=== PATIENT | female | born 1995 | race Caucasian/White ===

== ENCOUNTER 2021-10-24 18:01 | Outpatient (REF) | payer OTHER, SELFPAY | END 2021-10-24 18:02 | disposition home or self-care (01) | LOC: HO.LNP 18:01 | PROVIDERS: Visit Provider Hospitalist | DX: N39.0 Urinary tract infection, site not specified (principal) | CPT/HCPCS: 87086 ==

== ENCOUNTER → 2021-11-20 15:56 | Outpatient (REF) | payer OTHER, SELFPAY | LOC: HO.SL 15:56 | PROVIDERS: PCP Hospitalist; Visit Provider Hospitalist | DX: G47.19 Other hypersomnia (principal) | CPT/HCPCS: 95806 ==

== ENCOUNTER 2022-03-26 08:44 | Outpatient (REF) | payer OTHER, SELFPAY ==
[2022-03-26 11:32] LABS: Hematocrit 40.5 % (37.0-47.0); Hemoglobin 13.3 g/dl (12.0-16.0); Mean Corpuscular HGB Conc 32.8 g/dl (31.0-35.0); Mean Corpuscular Hemoglobin 28.6 pg (27.0-33.0); Mean Corpuscular Volume 87.1 fL (80.0-98.0); Platelet Count 348 X10*3/uL (160-400); Red Blood Count 4.65 X10*6/uL (4.20-5.50); Red Cell Distribution Width 12.1 % (11.0-16.0); White Blood Count 9.5 X10*3/uL (4.8-10.8)
[2022-03-26 12:05] LABS: Alanine Aminotransferase 14 U/L (0-31); Albumin Level 4.1 g/dL (3.5-5.0); Alkaline Phosphatase 61 U/L (39-117); Anion Gap 12 (12-20); Aspartate Amino Transferase 13 U/L (5-31); Bilirubin Total 0.4 mg/dL (0.0-1.0); Blood Urea Nitrogen 12 mg/dL (9-16); Calcium 8.8 mg/dL (8.4-10.2); Carbon Dioxide 25 mmol/L (22-29); Chloride 103 mmol/L (96-108); Cholesterol 213 mg/dL; Estimated Glomerular Filt Rate > 60; Glucose Fasting 84 mg/dL (60-99); HDL Cholesterol 50 mg/dL; LDL Cholesterol Calculated 130 mg/dl; Potassium 4.1 mmol/L (3.3-5.1); Sodium 136 mmol/L (135-145); Triglycerides 166 mg/dL
[2022-03-26 12:19] LABS: TSH reflex Free T4 1.35 uIU/mL (0.32-4.0)
== END 2022-03-26 08:45 | disposition home or self-care (01) ==
LOC: HO.WFDLDS 08:44
PROVIDERS: Visit Provider Hospitalist
DX: Z00.00 Encounter for general adult medical examination without abnormal findings (principal); N92.0 Excessive and frequent menstruation with regular cycle; R53.83 Other fatigue; G47.19 Other hypersomnia; Z68.30 Body mass index [BMI] 30.0-30.9, adult
CPT/HCPCS: 36415; 80053; 80061; 84443; 85027

== ENCOUNTER 2023-06-24 08:19 | Outpatient (AMB) | payer BC, OTHER, SELFPAY ==
--- NOTE | 2023-06-24 08:20 | A.OFFPC_ITS ---
Vital Signs 06/24/23 08:23 Height 5 ft 5 in Weight 195 lb 8 oz BMI 32.5 BP 108/62 Blood Pressure Location Lt brachial Position Sitting Respiration 14 Pulse 85 Pulse Source Pulse Oximeter Temp 98.2 F Temp Source Oral Pulse Oximetry (%) 99 Oxygen Delivery Method Room Air Intake Visit Reasons: Annual PE Intake Note: Patient is here for her yearly physical. Patient reports she feels overly tired during the daytime. She reports she does snore while laying on her back and she has had a sleep study completed 1-2 years ago which came back normal. Patient states she sleeps well at night due to having trazadone previously prescribed by Pooja Silva DNP. Patient reports this medication helps her to stay asleep at night. Patient states she is still waking up and going through her day exhausted. Patient reports she was recently diagnosed with PCOS and is now taking Metformin 500mg daily. Senior Application Security Consultant Required: No Accompanied by: Self / Same As Patient Allergies No Known Allergies Allergy (Verified 06/24/23 08:45) Medication List - Last Reconciled 06/24/23 by Adelina Allen CNP metformin 500 mg PO DAILY trazodone 50 mg PO TID PRN Tobacco use date assessed: 06/24/23 Dental Screening Dental Screen Date: 06/24/23 Did you have a dental visit in the last 12 months?: Yes Did you have a dental problem in the last 6 months where you did not have access to dental care?: No Was dental information given to patient?: Patient has dentist HPI HPI Comments History of Present Illness Details 28-year-old female presents for complete physical exam. Her former PCP was JACKIE who is no longer with the practice She has medical history significant for for PCOS and fatigue She is on metformin and trazodone which he admits to taking as prescribed Her last office visit with her PCP was July 2022. Her last routine blood work was over a year ago. She reports fatigue during the day for several months. She notes that Trazadone promotes adequate night sleep. She takes Trazadone 50 mg every night and denies taking the medication during the day. She states that she wakes up exhausted every morning. She also reports snoring while lying on her back. She had normal sleep study 1-2 years ago. She states that she started going to the gym 2 weeks ago and has been exercising 4 days weekly. She states she does not notice improvement in her energy. She is followed by [facility] digital media representative. Her last pap smear was 09/2022: normal. She was diagnosed with PCOS in October 2022. She was prescribed metformin which she notes she has not taking in the past 1 month. She states that she is sexually active, in a monogamous relationship, and practices safe sex. REPLACED BY [facility] Medical History (Updated 06/24/23 @ 09:24 by Adelina Allen CNP) History of PCOS Obesity (BMI 35.0-39.9 without comorbidity) Asthma Surgical History [place] teeth extracted Family History (Updated 06/24/23 @ 08:34 by Aletha Vieira CMA) Father Melanoma Maternal Grandfather Heart disease Paternal Grandfather Pancreatic cancer Mother Hypertension Other Substance use disorder Social History Household Members: Significant Other Housing: House Alcohol intake: current Alcohol intake frequency: holidays/special occasions only Patient Tobacco Use Status: Never used Tobacco e-Cigarette/Vaping Use: Never Used Second Hand Smoke Exposure: No service: No Current occupational status: employed Current occupation: Patient works for [employer]. Cognitive needs: No Hearing needs: No Vision needs: No Questionnaire PHQ-9 Over the last 2 weeks, how often have you been bothered by any of the following problems? 1. Little interest or pleasure in doing things: not at all 2. Feeling down, depressed, or hopeless: not at all 3. Trouble falling or staying asleep, or sleeping too much: nearly every day 4. Feeling tired or having little energy: nearly every day 5. Poor appetite or overeating: not at all 6. Feeling bad about yourself - or that you are a failure or have let yourself o r your family down: not at all 7. Trouble concentrating on things, such as reading the newspaper or watching television: more than half the days 8. Moving or speaking so slowly that other people could have noticed. Or the opposite - being so fidgety or restless that you have been moving around a lot more than usual: not at all 9. Thoughts that you would be better off or of hurting yourself in some way: not at all Total score: 8 Depression Screening Interpretation: Positive Depression Screening Done: Yes 19374 - PHQ-9 Billing: Yes Source: Developed by Drs. Sunday Alvarez, Evla Castro, Mitch Ba and colleagues, with an educational romeo from [employer]. Thrive Questionnaire Date Thrive assessed: 06/24/23 I am a: Patient What is your living situation today?: I have a steady place to live Within the past 12 months, did the food you bought not last and you didn't have the money to get more?: Never true Within the past 12 months, did you worry whether your food would run out before you got money to buy more?: Never true Do you have trouble paying for medicines?: No Do you have trouble getting transportation to medical appointments?: No Do you have trouble paying your heating and electricity bill?: No Do you have trouble taking care of your child, family member or friend?: No Do you have trouble with day-to-day activities such as bathing, preparing meals, shopping, managing finances, etc.?: No Are you currently unemployed and looking for a job?: No Are you interested in more education?: No Currently or been in a relationship where the following occur: no concerns reported AUDIT C Alcohol Use Questionnaire (AUDIT-C) 1. How often do you have a drink containing alcohol?: Never 3. How often do you have six or more drinks on one occasion?: Never Total Score: 0 Score Reviewed/Action Taken: Yes JUVENAL-7 AMB Questionnaire JUVENAL-7 Date JUVENAL - 7 assessed: 06/24/23 Feeling nervous, anxious, or on edge: 1 = Several days Not being able to stop or control worryin = Not at all Worrying too much about different things: 0 = Not at all Trouble relaxin = Not at all Being so restless that it is hard to sit still: 0 = Not at all Becoming easily annoyed or irritable: 2 = More than half the days Feeling afraid as if something awful might happen: 0 = Not at all Total JUVENAL-7 score (0-4 normal; 5-9 mild; 10-14 moderate; 15-21 severe): 3 Source: Developed by Drs. Sunday Alvarez, Elva Castro, Mitch Ba and colleagues, with an educational romeo from [employer]. JUVENAL-7 Assessment Billing JUVENAL-7 Assessment Tool: JUVENAL-7 Assessment 00051 Review of Systems Const Details: Denies chills, Reports fatigue, Denies fever(s), Denies headache(s) and Denies weakness HEENT Denies change in vision, Denies dizziness, Denies headache(s), Denies hearing loss, Denies nasal congestion, Denies sinus pain, Denies sinus pressure and Denies sore throat Card Denies chest pain, Denies lightheadedness, Denies dyspnea and Denies other (palpitations) Resp Denies cough, Denies dyspnea and Denies wheezing GI Denies abdominal pain, Denies melena, Denies hematochezia, Denies change in bowel habits, Denies dyspepsia and Denies nausea Denies hematuria and Denies dysuria Musc Denies abnormal gait, Denies myalgias, Denies arthralgias, Denies numbness and Denies tingling Skin/Breast Denies rash, Denies unusual bruising and Denies wounds Neuro Denies abnormal gait, Denies dizziness, Denies headache(s), Denies memory loss, Denies numbness, Denies Sensory deficit (Neuro), Denies tingling and Denies weakness Psych Denies anxiety, Denies depression and Denies memory loss Endo Denies cold intolerance, Reports fatigue, Denies heat intolerance, Denies polydipsia and Denies polyuria Bayron/Lymph Denies easy bleeding and Denies easy bruising Aller/Immun Denies wheezing Physical exam (Primary Care) Vital Signs: Last Vital Signs Temp 98.2 F 06/24/23 08:23 Pulse 85 06/24/23 08:23 Resp 14 06/24/23 08:23 BP 108/62 06/24/23 08:23 Pulse Ox 99 06/24/23 08:23 Oxygen Delivery Method Room Air 06/24/23 08:23 BMI result Body Mass Index 32.5 Tobacco/Smoking Status: Tobacco use Status Tobacco use date assessed 06/24/23 06/24/23 08:39 Patient Tobacco Use Status Never used Tobacco 06/24/23 08:21 e-Cigarette/Vaping Use Never Used 06/24/23 08:21 PHQ-9: PHQ-9 Score PHQ-9: Total score 8 06/24/23 08:43 Depression Screening Interpretation: Positive Thrive Assessment: Date of Thrive Assessment Date Thrive assessed 06/24/23 06/24/23 08:39 Currently or been in a relationship where the following occur: no concerns reported Const Other: General: no acute distress, well developed, alert and awake Nutritional Appearance: well nourished Orientation/consciousness: patient oriented x3 HENMT Head: Yes normocephalic and Yes atraumatic Ears: hearing grossly normal bilaterally and TM's normal bilaterally General nose exam: Normal external nose present and Normal nares present Mouth: Normal oral and palatal mucosa present and moist mucous membranes Teeth and gingiva: dentition normal Throat: Yes oropharynx normal Eyes Pupils: Equal, round and reactive pupils present and Pupil accommodation reflex normal EOM: EOMs intact bilaterally Neck Neck: Yes normal visual inspection, Yes no lymphadenopathy and Yes trachea midline Thyroid: Thyroid normal Carotids: no bruits Lymphatic: no lymphadenopathy noted Chest Chest palpation & inspection: normal inspection of the chest Resp Effort & Inspection: normal respiratory effort Auscultation: clear to auscultation bilaterally Cardio Rate: regular rate Rhythm: regular rhythm Heart sounds: S1 normal heart sound present, S2 normal heart sound present, no gallops, no murmurs and no rubs Bruits: no abdominal aortic bruits and no carotid bruits GI Palpation (GI): No Abdominal aortic bruit present, Soft to palpation, nontender, No hepatosplenomegaly present and No Rebound tenderness present Auscultation: normal bowel sounds General: Yes no CVA tenderness Back/Spine/Pelvis Back: no CVA tenderness Cervical Spine: cervical ROM normal and No Cervical spine tenderness Thoracic/Lumbar Spine: thoraco-lumbar ROM normal, No pain with thoraco-lumbar ROM, No thoracic spinal tenderness and No lumbar spinal tenderness Skin General: warm and dry. Normal skin color. Normal skin turgor Lesions: no lesions Rashes: no rashes Trauma: no lacerations or abrasions Wounds: no wounds Nails: normal Neuro General: patient oriented x3, gait normal and CN's II-XI intact bilaterally Cranial nerves: Yes Equal, round and reactive pupils present Cognition (Neuro): normal cognition Gait exam (Neuro): Normal gait present Motor exam (neuro): 5/5 motor strength present throughout Sensory Exam: No Sensory deficit (Neuro) Deep tendon reflexes (DTR's): Right patellar reflex intensity grade: 2+ and Left patellar reflex intensity grade: 2+ Extrem General: Yes normal to inspection, No edema and No calf tenderness Psych Appearance: grossly normal Affect: normal affect Attitude: cooperative Thought process: Normal thought process present Assessment and Plan Assessment & Plan (1) Normal physical examination, routine: Code(s): Z00.00 - Encounter for general adult medical examination without abnormal findings Plan: No significant physical restrictions or limitations noted Advised to get blood work done before next office visit Follow-up in 1 month for fatigue and labs review. Return sooner with worsening or new symptoms Verbalized understanding and agreed with treatment plan. (2) Fatigue: Code(s): R53.83 - Other fatigue Plan: She reports fatigue during the day for several months. She notes that Trazadone promotes adequate night sleep. She takes Trazadone 50 mg every night and denies taking the medication during the day. She states that she wakes up exhausted every morning. She started exercising 4 days a week without improvement in her energy. She has not taken her metformin for the past 1 month. Symptoms likely due to insulin resistant of PCOS. Anemia, thyroid disease, and vitamin-D deficiency is also possible. Will check CBC, TSH, vitamin-D levels, and make adjustments as needed Continue to take metformin 500 mg daily Healthy diet and routine exercise encouraged Continue follow-up with digital media representative as planned Follow-up in 1 month or return sooner with worsening or new symptoms Verbalized understanding and agreed with treatment plan. (3) Snoring: Code(s): R06.83 - Snoring Plan: She also reports snoring while lying on her back. She had normal sleep study 1-2 years ago. Referred to sleep medicine. (4) Obesity (BMI 30.0-34.9): Code(s): E66.9 - Obesity, unspecified Plan: She weighs 195 lb, BMI is 32.5 Snoring may be related to obesity Healthy diet and routine exercise encouraged Verbalized understanding and agreed with treatment plan. Orders: Orders Comprehensive [place]. Panel Fast Today Z00.00 - Encounter for general adult medical examination without abnormal findings Complete Blood Count Auto Diff Today Z00.00 - Encounter for general adult medical examination without abnormal findings Lipid Panel Today Z00.00 - Encounter for general adult medical examination without abnormal findings UA CC w/rflx Micro + Cult Today Z00.00 - Encounter for general adult medical examination without abnormal findings Vitamin D 25-OH Total Today R53.83 - Other fatigue TSH reflex Free T4 Today Z00.00 - Encounter for general adult medical examination without abnormal findings Referrals Sleep Medicine Referral R06.83 - Snoring Medications: Changed From trazodone 50 mg PO TID PRN 90 tabs 1RF sleep assist/anxiety/overwhemed r/t lack of sleep Z72.820 - Sleep deprivation To trazodone 50 mg PO DAILY PRN 90 tabs 1RF sleep assist/anxiety/overwhemed r/t lack of sleep Z72.820 - Sleep deprivation Coding Level of Care Code Est Pt Level 4 (48420) Est Pt Prev Care 18-39y(73053) Diagnoses Normal physical examination, routine Z00.00 Fatigue R53.83 Snoring R06.83 Obesity (BMI 30.0-34.9) E66.9 Additional Codes JUVENAL-7 Assessment Billing - JUVENAL-7 Assessment Tool: JUVENAL-7 Assessment 75511 ([id number])
[2023-06-24 08:23] VITALS: BP 108/62; PULSE 85; RESP 14; TEMP 36.8; O2SAT 99; BMI 32.5
== END 2023-06-24 10:03 | disposition home or self-care (01) ==
PROVIDERS: PCP Hospitalist; Visit Provider Nurse Practitioner Family
DX: Z00.00 Encounter for general adult medical examination without abnormal findings (principal); R53.83 Other fatigue; R06.83 Snoring; E66.9 Obesity, unspecified; Z87.440 Personal history of urinary (tract) infections
CPT/HCPCS: 99395

== ENCOUNTER 2023-07-02 15:19 | Outpatient (AMB) | payer BC, SELFPAY ==
--- NOTE | 2023-07-02 15:21 | MHC.OFFVIS ---
Intake Vital Signs 07/02/23 15:25 Height 5 ft 5 in Weight 196 lb BMI 32.6 BP 118/66 Blood Pressure Location Lt brachial Position Sitting Intake Visit Reasons: [facility]: Snoring while lying on her back - LVM Intake Note: Pt presents today for ? Sleep Apnea . Pt doesnt sleep well. Pt takes Trazodone 50 mg qhs c some relief . Pt feels tired , has to take naps. Pt states this started about 5 years ago. Allergies No Known Allergies Allergy (Verified 07/02/23 15:28) HPI HPI Comments History of Present Illness Details 28 y/o female patient presents for new in-person visit for sleep consultation. Pt reports non refreshing sleep, and excessive daytime sleepiness. She can fall asleep anytime anywhere. The symptoms has been worsened over the last 5 [address] She can't drive long distance, only drive in the morning for long distance. Her eyes getting really heavy in the afternoon and it is hard to open, and needs to take a nap daily, 30 min to 2hrs. Had a home sleep study done in Nov, 2021 but it was negative for sleep apnea. She gained 16 lb since the last sleep study. Sleep questionnaire: Have you ever been diagnosed with a sleep disorder? No. Have you ever had a sleep study in the past? Yes, home sleep study. Have you ever been treated for a sleep disorder? No. Do you take medications for a sleep disorder? Trazodone 50 mg. Do you snore? Yes. Do you wake up gasping at night? No. Do you have episodes of apneas? No. If yes, are they witnessed? No. Do you have episodes of nocturnal chest pain or dyspnea? No. Do you have difficulty initiating sleep? Yes. Do you have difficulty maintaining sleep? Yes. Do you wake up tired? Yes. Do you have headaches upon awakening? Yes, sometimes. Do you wake up with dry mouth or throat? Not often. Do you have GERD? No. Do you have nocturia? No. Do you have nocturnal leg cramps? Occasionally. Do you have symptoms of restless legs? No. Do you act out your dreams? No. Sleep hygiene questionnaire: What is your usual sleep routine? Usual bedtime is at 8-9 pm; Usual wake up time is at 6-6:30 am. Do you take naps? Yes, 30 min to 2 hrs. Is your sleep environment cool, dark, and quiet? Yes. Do you exercise? Yes, for an hour 4 times a week. Do you take caffeine or other stimulants? Coffee and Red Bulls. Do you use electronics in bed? Yes. What is your work schedule? 8 am-4 pm. Hypersomnolence questionnaire: Do you have daytime tiredness or fatigue? Yes. Do you easily fall asleep when inactive? Yes. Have you ever had episodes of sudden weakness? No. Have you ever had episodes of sudden weakness associated with strong emotions? No. [facility] Medical History History of PCOS Obesity (BMI 35.0-39.9 without comorbidity) Asthma Surgical History [place] teeth extracted Family History Father Melanoma Maternal Grandfather Heart disease Paternal Grandfather Pancreatic cancer Mother Hypertension Other Substance use disorder Social History (Updated 07/02/23 @ 15:29 by Janis Rosa) Household Members: Significant Other Housing: House Alcohol intake: current Alcohol intake frequency: holidays/special occasions only Patient Tobacco Use Status: Never used Tobacco e-Cigarette/Vaping Use: Never Used Second Hand Smoke Exposure: No service: No Current occupational status: employed Current occupation: Patient works for [employer]. Cognitive needs: No Hearing needs: No Vision needs: No Questionnaire [place] Sleepiness Scale Questions Sitting and reading: high chance of dozing Watching TV: moderate chance of dozing Sitting inactive in a theater, movie etc.: high chance of dozing As a passenger in a car for an hour without break: high chance of dozing Lying down in the afternoon when circumstances permit: high chance of dozing Sitting and talking to someone: moderate chance of dozing Sitting quietly after lunch without alcohol: moderate chance of dozing In a car, while stopped for a few minutes in the traffic: would never doze ESS < 10: normal, ESS > 12: pathologic: 18 Review of Systems Const All systems reviewed & are unremarkable except as noted in HPI and below ENT Reports Normal hearing present Neuro Reports Normal hearing present Physical Exam Vital Signs: Last Vital Signs BP 118/66 07/02/23 15:25 BMI result Body Mass Index 32.6 Const General: cooperative and tired appearing Nutritional Appearance: obese Orientation/consciousness: patient oriented x3 Neck Neck: Yes full ROM and Yes supple Resp Effort & Inspection: normal respiratory effort and able to speak in complete sentences Neuro General: patient oriented x3 and gait normal Cranial nerves: Yes Bilaterally intact EOM present, Yes Normal facial strength present, Yes Midline tongue present, Yes Symmetric palate elevation present, Yes Normal hearing present, Yes Ability to bilaterally rotate head present and Yes Ability to bilaterally elevate shoulders present Cognition (Neuro): normal cognition Gait exam (Neuro): Normal gait present Motor exam (neuro): 5/5 motor strength present throughout, Pronator motor function not present and no tremor noted Psych Appearance: grossly normal Mental Status: mental status grossly normal Speech and movement: Normal speech and movement present Affect: normal affect Attitude: cooperative Assessment & Plan Assessment & Plan (1) Obesity (BMI 30.0-34.9): Code(s): E66.9 - Obesity, unspecified (2) Snoring: Code(s): R06.83 - Snoring (3) Fatigue: Code(s): R53.83 - Other fatigue (4) Excessive daytime sleepiness: Code(s): G47.19 - Other hypersomnia Plan Pt is advised to undergo in lab sleep study to assess for sleep apnea. The home sleep study was inconclusive. Will f/u with pt after study to discuss results and appropriate treatment options. Wt reduction advised. Pt to call with any worsening concerns or questions. Orders: Orders RT PSG in-lab sleep study 07/02/23 E66.9 - Obesity, unspecified, G47.19 - Other hypersomnia, R06.83 - Snoring, R53.83 - Other fatigue, Z87.42 - Personal history of other diseases of the female genital tract Coding Level of Care Code New Pt Level 3 (76643) Diagnoses Obesity (BMI 30.0-34.9) E66.9 Snoring R06.83 Fatigue R53.83 Excessive daytime sleepiness G47.19
[2023-07-02 15:25] VITALS: BP 118/66; BMI 32.6
== END 2023-07-02 15:54 | disposition home or self-care (01) ==
PROVIDERS: PCP Hospitalist; Visit Provider Nurse Practitioner Family
DX: E66.9 Obesity, unspecified (principal); R06.83 Snoring; R53.83 Other fatigue; G47.19 Other hypersomnia
CPT/HCPCS: 99203

== ENCOUNTER → 2023-07-02 15:19 | Outpatient (BNVA) | payer OTHER, SELFPAY | PROVIDERS: PCP Hospitalist; Visit Provider Nurse Practitioner Family ==

== ENCOUNTER 2023-07-16 07:08 | Outpatient (REF) | payer BC, SELFPAY ==
[2023-07-16 11:13] LABS: MANUAL DIFF FLAG NO
[2023-07-16 11:28] LABS: Basophils Percent Auto 0.5 % (0-2); Eosinophils Absolute Auto 0.2 X10*3/uL (0.0-0.4); Eosinophils Percent Auto 2.3 % (0-4); Hematocrit 40.1 % (37.0-47.0); Hemoglobin 13.5 g/dl (12.0-16.0); Imm Gran Abs Auto 0.01 X10*3/uL (0.00-0.03); Imm Gran Pct Auto 0.1 % (0.0-0.4); Lymphocytes Absolute Auto 2.9 X10*3/uL (1.2-4.9); Lymphocytes Percent Auto 40.1 % (20-40); Mean Corpuscular HGB Conc 33.7 g/dl (31.0-35.0); Mean Corpuscular Hemoglobin 28.5 pg (27.0-33.0); Mean Corpuscular Volume 84.8 fL (80.0-98.0); Mean Platelet Volume 9.6 fL (9.4-12.3); Monocytes Absolute Auto 0.5 X10*3/uL (0.1-1.2); Monocytes Percent Auto 6.8 % (2-11); Neutrophils Absolute Auto 3.7 x10*3/uL (2.0-8.3); Neutrophils Percent Auto 50.2 % (45-73); Platelet Count 325 X10*3/uL (160-400); Red Blood Count 4.73 X10*6/uL (4.20-5.50); Red Cell Distribution Width 11.6 % (11.0-16.0); White Blood Count 7.3 X10*3/uL (4.8-10.8)
[2023-07-16 11:35] LABS: Appearance Urine Turbid; Color Urine Yellow; Glucose Urine UA Negative (Negative); Leukocyte Esterase Urine Negative (Negative); Nitrite Urine Negative (Negative); PH 5.5 (5.0-9.0); Specific Gravity - Urine 1.025 (1.005-1.025); Urine Blood Negative (Negative); Urine Ketones Negative (Negative); Urine Protein Negative (Neg-Trace)
[2023-07-16 12:05] LABS: Alanine Aminotransferase 22 U/L (0-31); Albumin Level 4.3 g/dL (3.5-5.0); Alkaline Phosphatase 81 U/L (39-117); Anion Gap 12 (12-20); Aspartate Amino Transferase 18 U/L (5-31); Bilirubin Total 0.4 mg/dL (0.0-1.0); Blood Urea Nitrogen 12 mg/dL (9-16); Calcium 9.4 mg/dL (8.4-10.2); Carbon Dioxide 26 mmol/L (22-29); Chloride 104 mmol/L (96-108); Cholesterol 190 mg/dL (<200); Estimated Glomerular Filt Rate > 60; Glucose Fasting 90 mg/dL (60-99); HDL Cholesterol 47 mg/dL (>40); LDL Cholesterol Calculated 111 mg/dL (<100); Potassium 4.2 mmol/L (3.3-5.1); Sodium 138 mmol/L (135-145); TSH reflex Free T4 1.49 uIU/mL (0.32-4.0); Total Protein 7.3 g/dL (6.5-8.0); Triglycerides 160 mg/dL (<150)
== END 2023-07-16 07:09 | disposition home or self-care (01) ==
LOC: HO.WFDLDS 07:08
PROVIDERS: Visit Provider Nurse Practitioner Family
DX: Z00.00 Encounter for general adult medical examination without abnormal findings (principal); R53.83 Other fatigue
CPT/HCPCS: 36415; 80053; 80061; 81003; 82306; 84443; 85025

== ENCOUNTER 2023-07-21 16:01 | Outpatient (AMB) | payer BC, SELFPAY ==
--- NOTE | 2023-07-21 15:30 | MHC.PC.OV ---
Intake Visit Reasons: Lab results Intake Note: Patient is ready for her lab results via telehealth appointment. Patient would like to discuss if there is anything she can take to give herself more energy. Allergies No Known Allergies Allergy (Verified 07/02/23 15:28) Tobacco use date assessed: 06/24/23 HPI HPI Comments History of Present Illness Details This is a telephonic telehealth visit for review of recent blood work. Patient was seen over 3 weeks ago for complete physical exam. She presented with complaints of fatigue, excessive daytime sleepiness, and snoring. Labs were ordered. She was referred to sleep medicine. She reports continued daytime sleepiness and fatigue. She continues to snore. She notes that she continues to exercise during the day. She has been sleeping better at night. She rates her energy level at 4-5/10, with 10 being most energetic. She notes she was contacted by sleep medicine to have sleep study done next month. [facility] [place] Medical History History of PCOS Obesity (BMI 35.0-39.9 without comorbidity) Asthma Surgical History [place] teeth extracted Family History Father Melanoma Maternal Grandfather Heart disease Paternal Grandfather Pancreatic cancer Mother Hypertension Other Substance use disorder Social History (Updated 07/02/23 @ 15:29 by Janis Rosa) Household Members: Significant Other Housing: House Alcohol intake: current Alcohol intake frequency: holidays/special occasions only Patient Tobacco Use Status: Never used Tobacco e-Cigarette/Vaping Use: Never Used Second Hand Smoke Exposure: No service: No Current occupational status: employed Current occupation: Patient works for [email or web address] Cognitive needs: No Hearing needs: No Vision needs: No Questionnaire Thrive Questionnaire Date Thrive assessed: 06/24/23 JUVENAL-7 AMB Questionnaire JUVENAL-7 Date JUVENAL - 7 assessed: 06/24/23 Source: Developed by Drs. Sunday Alvarez, Elva Castro, Mitch Ba and colleagues, with an educational romeo from [employer]. Review of Systems Const Details: Const Denies chills, Denies fatigue, Denies fever(s), Denies headache(s) and Denies weakness ENT Denies dizziness and Denies headache(s) Card Denies chest pain, Denies lightheadedness, Denies dyspnea and Denies other (Palpitations) Resp Denies cough, Denies dyspnea, Denies wheezing and Denies other ( shortness of breath) GI Denies abdominal pain, Denies melena, Denies hematochezia, Denies change in bowel habits, Denies dyspepsia and Denies nausea Denies hematuria and Denies dysuria Musc Denies abnormal gait, Denies myalgias, Denies arthralgias, Denies numbness and Denies tingling Skin/Breast Denies rash, Denies unusual bruising and Denies wounds Neuro Denies abnormal gait, Denies dizziness, Denies headache(s), Denies memory loss, Denies numbness, Denies Sensory deficit (Neuro), Denies tingling and Denies weakness Psych Denies anxiety, Denies depression, Denies memory loss Endo Denies cold intolerance, Denies fatigue, Denies heat intolerance, Denies polydipsia and Denies polyuria Aller/Immun Denies wheezing Physical exam (Primary Care) Tobacco/Smoking Status: Tobacco use Status Tobacco use date assessed 06/24/23 07/21/23 15:33 Patient Tobacco Use Status Never used Tobacco 07/21/23 15:33 e-Cigarette/Vaping Use Never Used 07/21/23 15:33 Thrive Assessment: Date of Thrive Assessment Date Thrive assessed 06/24/23 07/21/23 15:33 Const Other: Telemedicine. No physical exam Telehealth Telehealth Location of provider rendering services: practice address Location of patient: address on file Patient Identification confirmed using: Name, : Yes Telehealth method: voice only Patient verbally consented to treatment: Yes Patient verbally consented to billing insurance company: Yes Patient informed of any privacy concerns related to visit: Yes Assessment and Plan Assessment & Plan (1) Elevated cholesterol with elevated triglycerides: Code(s): E78.2 - Mixed hyperlipidemia Plan: Recent labs reviewed with the patient Unremarkable lab results except for slightly elevated triglycerides and LDL, 160 and 111 respectively Advised to limit foods high in saturated fat and avoid foods high trans fat Routine exercise encouraged Will continue to monitor (2) Snoring: Code(s): R06.83 - Snoring Plan: She notes she was contacted by sleep medicine to have sleep study done next month Advised to get sleep study done as planned Follow-up in 2 months or return sooner with symptoms or concerns Verbalized understanding and agreed with treatment plan. (3) Excessive daytime sleepiness: Code(s): G47.19 - Other hypersomnia Plan: She reports continued daytime sleepiness and fatigue. She reports adequate night sleep She rates her energy level at 4-5/10, with 10 being most energetic Recent lab results reviewed. No anemia. Normal vitamin-D and TSH level Her symptoms may be attributed to sleep apnea Advised to get sleep study done as scheduled Routine exercise encouraged Follow-up in 2 months or return sooner with worsening or new symptoms Verbalized understanding and agreed with treatment plan. (4) Fatigue: Code(s): R53.83 - Other fatigue Plan: As above Coding Level of Care Code Tele Est Pt Level 3 (13758) Diagnoses Elevated cholesterol with elevated triglycerides E78.2 Snoring R06.83 Excessive daytime sleepiness G47.19 Fatigue R53.83 Time Spent (min) 20
== END 2023-07-21 16:28 | disposition home or self-care (01) ==
PROVIDERS: PCP Nurse Practitioner Family; Visit Provider Nurse Practitioner Family
DX: E78.2 Mixed hyperlipidemia (principal); R06.83 Snoring; G47.19 Other hypersomnia; R53.83 Other fatigue
CPT/HCPCS: 99442

== ENCOUNTER → 2023-08-07 19:30 | Outpatient (REF) | payer BC, SELFPAY | LOC: HO.SL 19:30 | PROVIDERS: PCP Nurse Practitioner Family; Visit Provider Nurse Practitioner Family | DX: Z13.89 Encounter for screening for other disorder (principal) ==

== ENCOUNTER 2023-09-22 16:08 | Outpatient (AMB) | payer BC, SELFPAY ==
--- NOTE | 2023-09-22 16:02 | MHC.PC.OV ---
Intake Visit Reasons: fatigue [phone] Intake Note: Patient states that she recently found out if she is and would like to know how fatigued can she get and how long it lasts for. Patient would like know if there is something she can take or do to lower the fatigue of her . Patient joshua stopped taking her Metformin and Trazadone due to finding out she was . 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 She is followed by [facility] [employer] sales planner She no longer takes metformin trazodone due to being She is currently followed by sleep medicine and has a follow-up appointment later next month. Current sleep study is normal [facility] Medical History History of PCOS Obesity (BMI 35.0-39.9 without comorbidity) Asthma Surgical History [place] teeth extracted Family History Father Melanoma Maternal Grandfather Heart disease Paternal Grandfather Pancreatic cancer Mother Hypertension Other Substance use disorder Social History (Updated 07/02/23 @ 15:29 by Janis Rosa) Household Members: Significant Other Housing: House Alcohol intake: current Alcohol intake frequency: holidays/special occasions only Patient Tobacco Use Status: Never used Tobacco e-Cigarette/Vaping Use: Never Used Second Hand Smoke Exposure: No service: No Current occupational status: employed Current occupation: Patient works for [employer]. Cognitive needs: No Hearing needs: No Vision needs: No Questionnaire Thrive Questionnaire Date Thrive assessed: 06/24/23 JUVENAL-7 AMB Questionnaire JUVENAL-7 Date JUVENAL - 7 assessed: 06/24/23 Source: Developed by Drs. Sunday Alvarez, Elva Castro, Mitch Ba and colleagues, with an educational romeo from [employer]. Review of Systems Const Details: Const Denies chills, Reports fatigue, Denies fever(s), Denies headache(s) and Denies weakness ENT Denies dizziness and Denies headache(s) Card Denies chest pain, Denies lightheadedness, Denies dyspnea and Denies other (Palpitations) Resp Denies cough, Denies dyspnea, Denies wheezing and Denies other ( shortness of breath) GI Denies abdominal pain, Denies melena, Denies hematochezia, Denies change in bowel habits, Denies dyspepsia and Denies nausea Denies hematuria and Denies dysuria Musc Denies abnormal gait, Denies myalgias, Denies arthralgias, Denies numbness and Denies tingling Skin/Breast Denies rash, Denies unusual bruising and Denies wounds Neuro Denies abnormal gait, Denies dizziness, Denies headache(s), Denies memory loss, Denies numbness, Denies Sensory deficit (Neuro), Denies tingling and Denies weakness Psych Denies anxiety, Denies depression, Denies memory loss Endo Denies cold intolerance, Reports fatigue, Denies heat intolerance, Denies polydipsia and Denies polyuria Aller/Immun Denies wheezing Physical exam (Primary Care) Tobacco/Smoking Status: Tobacco use Status Tobacco use date assessed 06/24/23 09/22/23 16:06 Patient Tobacco Use Status Never used Tobacco 09/22/23 16:06 e-Cigarette/Vaping Use Never Used 09/22/23 16:06 Thrive Assessment: Date of Thrive Assessment Date Thrive assessed 06/24/23 09/22/23 16:06 Const Other: Telehealth visit. No physical exam Telehealth Telehealth Location of provider rendering services: practice address Location of patient: address on file Patient Identification confirmed using: Name, : Yes Telehealth method: voice only Patient verbally consented to treatment: Yes Patient verbally consented to billing insurance company: Yes Patient informed of any privacy concerns related to visit: Yes Assessment and Plan Assessment & Plan (1) Fatigue: Code(s): R53.83 - Other fatigue Plan: Continues to experience fatigue and excessive daytime sleepiness despite adequate sleep Recent sleep study is normal She is currently and been followed by tactical air control party manager Will referred to endocrinology for further workup She will discuss with her tactical air control party manager regarding further workup Advised to schedule her next physical exam and follow-up with worsening or new symptoms Verbalized understanding and agreed with treatment plan (2) Excessive daytime sleepiness: Code(s): G47.19 - Other hypersomnia Plan: As above Orders: Referrals Endocrinology Referral G47.19 - Other hypersomnia, R53.83 - Other fatigue Coding Level of Care Code Est Pt Level 2 (30512) Diagnoses Fatigue R53.83 Excessive daytime sleepiness G47.19 Time Spent (min) 15
== END 2023-09-22 16:41 | disposition home or self-care (01) ==
LOC: HO.HMGFM 16:08
PROVIDERS: PCP Nurse Practitioner Family; Visit Provider Nurse Practitioner Family
DX: R53.83 Other fatigue (principal); G47.19 Other hypersomnia
CPT/HCPCS: 99212

== ENCOUNTER 2024-01-06 13:36 | Outpatient (AMB) | payer OTHER, BC, SELFPAY ==
[2024-01-06 14:03] VITALS: BP 110/60; PULSE 113; TEMP 36.6; O2SAT 100; BMI 33.1
--- NOTE | 2024-01-06 14:03 | AM.OFFWIN_ITS ---
Intake Vital Signs 01/06/24 14:03 Height 5 ft 5 in Weight 199 lb BMI 33.1 BP 110/60 Blood Pressure Location Rt brachial Position Sitting Pulse 113 H Pulse Source Pulse Oximeter Temp 97.9 F Temp Source Temporal Artery Scan Pulse Oximetry (%) 100 Intake Visit Reasons: EP wc RT hand injury due to fall / Intake Note: pt is here for WC right hand injury due to fall at work. patient is Patient Tobacco Use Status: Never used Tobacco Allergies No Known Allergies Allergy (Verified 01/06/24 14:04) Do you need a note to return to daycare/school/sports/work: Yes HPI HPI Comments History of Present Illness Details 28 y/o female patient who presents to [facility] in clinic with c/o right hand/wrist pain after injury at work. She tripped and fell landing on her right hand/wrist. This happened this morning at school. [facility] Medical History History of PCOS Obesity (BMI 35.0-39.9 without comorbidity) Asthma Surgical History [place] teeth extracted Family History Father Melanoma Maternal Grandfather Heart disease Paternal Grandfather Pancreatic cancer Mother Hypertension Other Substance use disorder Social History (Updated 07/02/23 @ 15:29 by Janis Rosa) Household Members: Significant Other Housing: House Alcohol intake: current Alcohol intake frequency: holidays/special occasions only Patient Tobacco Use Status: Never used Tobacco e-Cigarette/Vaping Use: Never Used Second Hand Smoke Exposure: No service: No Current occupational status: employed Current occupation: Patient works for [employer]. Cognitive needs: No Hearing needs: No Vision needs: No Review of Systems Const All systems reviewed & are unremarkable except as noted in HPI and below Physical Exam Vital Signs: Last Vital Signs Temp 97.9 F 01/06/24 14:03 Pulse 113 H 01/06/24 14:03 BP 110/60 01/06/24 14:03 Pulse Ox 100 01/06/24 14:03 BMI result Body Mass Index 33.1 Const Other: 22 weeks. General: comfortable and no acute distress Orientation/consciousness: patient oriented x3 Neuro General: patient oriented x3, gait normal and moves all extremities Extrem Right upper extremity: normal capillary refill and Extremity exam: right hand Details: normal capillary refill, neuromotor exam normal, neurosensory exam normal, tenderness Location: of the dorsal hand, of the 4th digit and of the 5th digit, normal ROM of fingers and swelling Location: of the dorsal hand Location: over the 5th metacarpal, of the 4th digit and of the 5th digit; no unusual warmth, no lacerations, no ecchymosis and no crepitus Left upper extremity: normal to inspection and full ROM Psych Speech and movement: Normal speech and movement present Assessment & Plan Assessment & Plan (1) Right hand pain: Code(s): M79.641 - Pain in right hand Plan: - Xray not indicated at this time, Pt is 22 weeks - [place] -Wrapped hand with Rizwan - Acetaminophen for pain relief. - RTC Thursday if not better. Coding Level of Care Code Est Pt Level 3 (26531) Diagnoses Right hand pain M79.641 Time Spent (min) 15
== END 2024-01-06 17:03 | disposition home or self-care (01) ==
PROVIDERS: PCP Nurse Practitioner Family; Visit Provider Nurse Practitioner Family
DX: M79.641 Pain in right hand (principal); Z04.2 Encounter for examination and observation following work accident
CPT/HCPCS: 99213